=== PATIENT | male | born 1945 | race Caucasian/White ===

== ENCOUNTER 2016-08-10 01:48 | Inpatient (IN) | payer MEDICARE, OTHER ==
--- NOTE | ~2016-08-10 | DS ---
Discharge Summary [facility] [address] [place]. [address] NAME: FAITH STATON : 45 STATUS : DIS IN PAT#: [id number] AGE: 70 ADM/REG DATE : 08/10/16 MR#: [id number] REPORT SERV DATE: 08/16/16 DICTATED BY: GERSON AGUILAR DATE: 08/15/16 REPORT STATUS : Draft TRANSCRIBED BY: MODL DATE: 08/15/16 ADMISSION DATE: 08/10/2016 DISCHARGE DATE: 08/15/2016 DISCHARGE DIAGNOSES: 1. Cellulitis of the lower back. 2. Urinary tract infection. Both of these diagnoses consistent with Pseudomonas infection by culture. 3. Metastatic prostate cancer. 4. Parkinson disease. 5. Deafness. 6. Chronic pain syndrome. 7. Seizure disorder. 8. Anxiety and depression. 9. History of cerebrovascular accident with right hemiparesis. 10.History of alcohol abuse. CONSULTANTS DURING THIS HOSPITALIZATION: Dr. Sanjeev Melgar of Infectious Disease. INVASIVE PROCEDURES DONE DURING THIS HOSPITALIZATION: None. BRIEF HISTORY OF PRESENT ILLNESS: The patient is a 70-year-old male who is mostly bed-bound with a past stroke and hemiplegic, came in with mental status changes to [facility] and was transferred. For detailed history and physical exam, please see note dictated by Dr. Pete Patel on 08/10/2016. HOSPITAL COURSE: After being admitted to the hospital, this patient was given vancomycin, Rocephin, Diflucan intravenously, and he also had a slightly elevated CPK. He had cellulitis of the lower area as well as urinary tract infection which later proved to be Pseudomonas by cultures. Dr. Melgar saw the patient in consultation and recommended seven days of cefepime and patient has completed that course today. This patient's mentation has significantly improved and returned back to baseline. Physical Therapy saw the patient in consultation as well and did not recommend that he was a good candidate for rehab. We did discuss with the daughter regarding other options. This patient was found to be on multiple narcotics including methadone, oxycodone in large quantities. However, because we did not have any good history on him, these medicines were not continued during this hospitalization. This patient has actually improved in his mental state off these medications and has not displayed any signs or symptoms of withdrawal. This was discussed with the daughter, and at this time, I am recommending that these medicines be stopped. We will continue his Parkinson's medications as well. He is followed in Palliative Care by Dr. Marcel Snyder, and he will see them in followup. He remains medically stable otherwise and is being discharged in stable condition. Most of the communication with the patient during this hospitalization was done through a label designer and with family at the bedside on one occasion. DISPOSITION: Home. Discharge Summary [address] [address] NAME: FAITH STATON : 45 STATUS : DIS IN PAT#: [id number] AGE: 70 ADM/REG DATE : 08/10/16 MR#: [id number] REPORT SERV DATE: 08/16/16 DICTATED BY: GERSON AGUILAR DATE: 08/15/16 REPORT STATUS : Draft TRANSCRIBED BY: CLEMENTINA DATE: 08/15/16 ACTIVITY: As per family. DIET: As tolerated. MEDICATIONS: Baclofen 10 mg twice daily, BuSpar 7.5 mg twice daily, Sinemet CR 25/100 one tablet daily, Lasix 20 mg once daily, Zyrtec 10 mg once daily p.r.n., potassium 13.3 mEq p.o. daily, topical pain cream in the home setting, Zofran 4 mg three times daily p.r.n. for nausea, melatonin one tablet daily p.r.n. for sleep, and Artificial Tears. DISCHARGE FOLLOWUP: With Dr. Marcel Snyder in two to three weeks after discharge. More than 30 minutes spent planning this patient's discharge, reconciling medications, and discussing issues with the bilingual patient support caseworker as well as with the family at the bedside and documenting this discharge. MADY/CLEMENTINA Gerson Aguilar M.D. / [id number] CC: Frank Lunsford
--- NOTE | ~2016-08-10 | CN ---
Consultation Report [facility] [address] [place]. [address] NAME: FAITH STATON : 45 STATUS : ADM IN PAT#: [id number] AGE: 70 ADM/REG DATE : 08/10/16 MR#: [id number] REPORT SERV DATE: 08/10/16 DICTATED BY: LUIS MIGUEL BESS DATE: 08/10/16 REPORT STATUS : Draft TRANSCRIBED BY: MODKerwin DATE: 08/10/16 INFECTIOUS DISEASE CONSULT DATE OF CONSULTATION: REASON FOR REFERRAL: Evaluation and treatment of possible genitourinary tract infection, also severe rash on the back. HISTORY OF PRESENT ILLNESS: The patient is a 70-year-old male. He has a history of prostate cancer. He had a past stroke, and hemiplegic, bed-bound, and has a chronic Rosa. He was at home and developed acute mental status changes, so was taken to [facility] yesterday, with findings there of a normal temperature and normal white blood cell count. He had a rash that developed some time in the previous one to two weeks, and had been treated with baking soda, which apparently made it more inflamed and worse, extended to his entire back, perineal area, and on his scrotum, but no where else. He was given doses of vancomycin, Rocephin, and Diflucan there, transferred here for further care. His urinalysis there did show greater than 182 white blood cells, only moderate leukocyte esterase. The cultures have not been received in lab yet. He also had blood cultures sent. Chest x-ray showed no infiltrate. A CT scan of the brain without contrast was unremarkable. He seems calmer here today. He is deaf, and so unable to communicate with him, there was not a bleaching supervisor present, but he seems to understand some of our communication with him as far as being able to read the name on my lab coat, and understands some simple words by lip reading, so it appeared the mental status is better. PAST MEDICAL HISTORY: Otherwise unremarkable. MEDICATIONS: As mentioned above. ALLERGIES: NO KNOWN ANTIMICROBIAL ALLERGIES. SOCIAL HISTORY: He is disabled, apparently cared for at home. Prior to this he did not have any further history available. FAMILY HISTORY: None. PHYSICAL EXAMINATION: GENERAL: He is nontoxic appearing, awake, maintains eye contact, and said seems to understand some communication. VITAL SIGNS: His temperature here has been normal at 97.6, at present pulse 73, respirations 16, blood pressure 120/57. Weight 79 kg. HEENT: His sclerae are clear. LUNGS: clear anteriorly. HEART: Regular rate and rhythm. ABDOMEN: Soft and nontender. Positive bowel sounds. Consultation Report [facility] [id number] [place]. [address] NAME: FAITH STATON : 45 STATUS : ADM IN [facility]#: [id number] AGE: 70 ADM/REG DATE : 08/10/16 MR#: [id number] REPORT SERV DATE: 08/10/16 DICTATED BY: LUIS MIGUEL BESS DATE: 08/10/16 REPORT STATUS : Draft TRANSCRIBED BY: CLEMENTINA DATE: 08/10/16 BACK: On his back he has erythematous papular lesions covered the entire back down to the buttocks. There is a flat confluent erythema on his scrotum that looks like possible yeast infection. The back lesions look more like a reactive phenomenon and something that he has been lying on or something that has been applied to his back. LABORATORY DATA: White blood cell count 6.1, hematocrit 35, platelets 72, BUN and creatinine 8 and 0.59. Procalcitonin less than 0.05. IMPRESSION: Mental status changes, possibly due to a genitourinary tract infections, over the chronic Rosa, it is hard to know whether these changes that were seen are not chronic. I do not think the rash on his back represents an infection, but more likely reactive phenomenon though there may a yeast dermatitis in his groin. RECOMMENDATION: 1. Continue the broad-spectrum antibiotics for now. 2. Review the cultures at [facility]. 3. Diflucan for the yeast in his groin. 4. Follow the patient with you. I appreciate very much your consulting on this patient. JOSE GUADALUPE Luis Miguel Bess M.D. / [id number] CC: Jeffery Larson M.D.
--- NOTE | ~2016-08-10 | HP ---
History And Physical [facility] [id number] [place]. [address] NAME: FAITH GRANT : 45 STATUS : ADM IN [facility]#: [id number] AGE: 70 ADM/REG DATE : 08/10/16 MR#: [id number] REPORT SERV DATE: 08/10/16 DICTATED BY: PETE CARR DATE: 08/10/16 REPORT STATUS : Draft TRANSCRIBED BY: MODL DATE: 08/10/16 DATE OF ADMISSION: 08/10/2016 This is a patient I had accepted from [facility] after speaking with Dr. Mayo in the emergency department there. Briefly, this is a 70-year-old male with a history of prostate cancer, who had presented to their ER with altered mental status when he woke up in the morning. He also had a rash on his buttocks half way up his back. There are also multiple ulcerations of the skin, stage II. Apparently, home health which was visiting him and were following the rash had put baking soda on it and got the whole place inflamed about two days ago. This resulted in cellulitis. His buttocks are spared, but his scrotum is involved as well. In emergency room, initial workup revealed he had a urinary tract infection with purulent material in his Rosa catheter. The urinalysis revealed presence of a urinary tract infection and also showed yeast. He also had a tumor on his kidney, the details of which are not available. According to Dr. Mayo, blood cultures and urine cultures were taken, the patient was given vancomycin, Rocephin, and Diflucan intravenously. He also showed rhabdomyolysis. He had a CPK of 538 as well. His vitals prior to his transfer showed a heart rate of 95, blood pressure was 129/62. Apparently, he had not complained of any pain. 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 We unfortunately could not arrange an regulatory compliance coordinator who was working, and I was limited in my examination or history taking of this person. No review of systems nothing could be accomplished. However, I was able to examine his back and the rash and do a physical exam. PHYSICAL EXAMINATION: HEENT: His head appeared to be atraumatic and normocephalic. His pupils were equal and reacting to light and accommodating. External ocular muscles were intact. Membranes appeared to be moist and pink. Sclerae were nonicteric. SKIN: On his back, there was extensive rash and sloughing of erythematous skin, possibly due to the application of baking soda. It extends from just above his buttocks all the way to his neck and all over the back. His scrotum appeared to be involved as well. LUNGS: Clear to auscultation with no wheezes, rubs, or crackles. HEART: Heart sounds were regular with no murmurs, rubs, or gallops appreciated. ABDOMEN: Soft and nontender. Bowel sounds were present. EXTREMITIES: Showed no cyanosis, clubbing, or edema. NEUROLOGIC: Appeared to be grossly intact. He had contractures in his right upper extremity and paralysis in his right lower extremity from a prior CVA. Gait was not examined. LABORATORY DATA: His laboratory data and other information that accompanied the patient from [facility] were all reviewed as well. History And Physical [address] [address] NAME: FAITH GRANT : 45 STATUS : ADM IN [facility]#: [id number] AGE: 70 ADM/REG DATE : 08/10/16 MR#: [id number] REPORT SERV DATE: 08/10/16 DICTATED BY: PETE CARR DATE: 08/10/16 REPORT STATUS : Draft TRANSCRIBED BY: CLEMENTINA DATE: 08/10/16 IMPRESSION: 1. Cellulitis of the back. 2. Urinary tract infection. 3. Altered mental status. 4. Rhabdomyolysis. 5. History of prostate cancer. 6. Renal mass. 7. History of cerebrovascular accident with residual paralysis. PLAN: We will admit Mr. Grant to the Hospitalist Service on the med/surg tele floor for close monitoring. After obtaining cultures, we will continue his antibiotics; he was already started on Rocephin, vancomycin, and Diflucan. Apparently, his Rosa catheter was changed at [facility]. We will continue to monitor. We will get Wound Care to evaluate and treat his rash and ulcerations in the back. We will also get Social Work to evaluate his home situation. In the daytime, we may have the opportunity to have a live regulatory compliance coordinator and get more information from Mr. Grant. He is nonambulatory and communicates via sign language only. Meanwhile, we will start him on IV fluids for volume replacement, check chemistry, CBC, and other labs here, and proceed accordingly. We will also establish pain control as needed and place him on unfractionated heparin for DVT prophylaxis while he is here. The Hospitalist Service will be following him during his stay here. TIANA Pete Carr M.D. / [id number] CC: Jeffery Larson M.D.
[~2016-08-10 01:48] MED LIST: AMB10 PO; ARICEPT10 PO; ASAB PO; BACDS PO; DIOVAN HC1 PO; DRAMAMINE25 MG PO; FERRETTS325 MG PO; FISH-EPA1000 MG PO; GARLIC PO; KLOR-CON M2020 MEQ PO; LORT7 PO; LORTAB 5 PO; MAGOX4 PO; MCZ25 PO; MIRAPEX250 PO; PR25 PO; PROAM25 PO; SIN25 PO; ULTRAM50 PO; VICODINTAB PO; VITAMIN B PO; VITAMIN D1000 UNI1 PO; X5 PO; XANAX1 MG PO; [UNRECOGNIZED DRUG - OTHER] PO
[2016-08-10 03:31] LABS: ASCORBIC ACID (UR NOT ORDER) NEG (NEG); BILIRUBIN, URINE NEGATIVE (NEG); KETONE, URINE NEGATIVE (NEG); LEUKOCYTE ESTERASE(NOT OR SMALL (NEG); WBC (NOT ORDERED) (RFLEX) 52 (0-5)
[2016-08-10 07:14] LABS: BASOPHILS 0.3 %; BASOPHILS ABSOLUTE 0.02 10/3/uL (0.0-0.16); EOSINOPHILS 3.1 %; EOSINOPHILS ABSOLUTE 0.19 10/3/uL (0.0-0.53); HEMOGLOBIN 11.4 g/dL (13.6-17.8); IMMATURE GRANULOCYTES 0.5 %; IMMATURE GRANULOCYTES ABSOLUTE 0.03 10/3/uL (0.0-0.11); LYMPHOCYTES 26.9 %; LYMPHOCYTES ABSOLUTE 1.63 10/3/uL (0.67-4.30); MEAN CORPUSCULAR HEMOGLOB 29.6 pg (26.0-34.0); MEAN PLATELET VOLUME 9.8 fL (9.2-13.0); MONOCYTES 13.6 %; MONOCYTES ABSOLUTE 0.82 10/3/uL (0.21-1.20); NEUTROPHILS 55.6 %; NEUTROPHILS ABSOLUTE 3.36 10/3/uL (2.02-8.40); RBC DISTRIBUTION WIDTH 15.3 % (12.0-16.0); RED CELL COUNT 3.85 10/6/uL (4.7-6.1); WHITE BLOOD CELLS 6.1 10/3/uL (4.5-10.5)
[2016-08-10 07:17] LABS: MANUAL DIFF NO %; MEAN CORPUS HGB CONC 32.6 g/dL (32.0-36.0); MEAN CORPUSCULAR VOLUME 90.9 fL (80-100); PLATELET COUNT 72 10/3/uL (150-400)
[2016-08-10 07:29] LABS: A/G RATIO 0.8 (0.7-1.9); ALBUMIN 2.4 G/DL (3.5-5.0); ALKALINE PHOSPHATASE 102 U/L (45-117); BUN (BLOOD UREA NITROGEN) 8 MG/DL (6-23); CALCIUM, SERUM 8.1 MG/DL (8.5-10.4); CHLORIDE, SERUM 107 MMOL/L (96-112); CO2 (CARBON DIOXIDE) 27 MMOL/L (24-34); CREATININE 0.59 MG/DL (0.70-1.30); GFR AFRICAN AMERICAN 119 ML/MIN (>=60); GFR NON AFRICAN AMERICAN 103 ML/MIN (>=60); GLUCOSE, SERUM 90 MG/DL (60-99); PHOSPHORUS, SERUM 2.3 MG/DL (2.5-4.5); POTASSIUM, SERUM 3.6 MMOL/L (3.5-5.3); SGPT(ALT) 14 U/L (5-65); SODIUM, SERUM 140 MMOL/L (135-148); TOTAL BILIRUBIN 0.8 MG/DL (0-1.2); TOTAL PROTEIN 5.4 G/DL (6.0-8.5)
[2016-08-10 07:30] LABS: SGOT(AST) 31 U/L (5-40)
[2016-08-10 08:08] LABS: PROCALCITONIN <0.05 ng/mL (<0.5)
[2016-08-11 04:45] LABS: BASOPHILS 0.6 %; BASOPHILS ABSOLUTE 0.03 10/3/uL (0.0-0.16); EOSINOPHILS 2.9 %; EOSINOPHILS ABSOLUTE 0.15 10/3/uL (0.0-0.53); HEMATOCRIT 35.2 % (40.0-51.0); HEMOGLOBIN 11.2 g/dL (13.6-17.8); IMMATURE GRANULOCYTES 0.2 %; IMMATURE GRANULOCYTES ABSOLUTE 0.01 10/3/uL (0.0-0.11); LYMPHOCYTES 29.1 %; LYMPHOCYTES ABSOLUTE 1.52 10/3/uL (0.67-4.30); MEAN CORPUS HGB CONC 31.8 g/dL (32.0-36.0); MEAN CORPUSCULAR HEMOGLOB 29.2 pg (26.0-34.0); MEAN CORPUSCULAR VOLUME 91.7 fL (80-100); MEAN PLATELET VOLUME 9.2 fL (9.2-13.0); MONOCYTES 12.5 %; MONOCYTES ABSOLUTE 0.65 10/3/uL (0.21-1.20); NEUTROPHILS 54.7 %; NEUTROPHILS ABSOLUTE 2.86 10/3/uL (2.02-8.40); RBC DISTRIBUTION WIDTH 14.7 % (12.0-16.0); RED CELL COUNT 3.84 10/6/uL (4.7-6.1); WHITE BLOOD CELLS 5.2 10/3/uL (4.5-10.5)
[2016-08-11 04:52] LABS: MANUAL DIFF NO %; PLATELET COUNT 181 10/3/uL (150-400)
[2016-08-12 06:29] LABS: BUN (BLOOD UREA NITROGEN) 5 MG/DL (6-23); CALCIUM, SERUM 8.2 MG/DL (8.5-10.4); CHLORIDE, SERUM 106 MMOL/L (96-112); CO2 (CARBON DIOXIDE) 24 MMOL/L (24-34); CREATININE 0.51 MG/DL (0.70-1.30); GFR AFRICAN AMERICAN 126 ML/MIN (>=60); GFR NON AFRICAN AMERICAN 109 ML/MIN (>=60); GLUCOSE, SERUM 92 MG/DL (60-99); POTASSIUM, SERUM 3.2 MMOL/L (3.5-5.3); SODIUM, SERUM 141 MMOL/L (135-148)
[2016-08-12] MEDS ORDERED: LASIX (08:10)
[2016-08-12] MEDS ORDERED: *UNABLE3 (08:10)
[2016-08-12] MEDS ORDERED: POTASSIUM (08:11)
[2016-08-12] MEDS ORDERED: ROXICODONE (08:11)
[2016-08-12] MEDS ORDERED: METHADONE (08:12)
[2016-08-12] MEDS ORDERED: [UNRECOGNIZED DRUG - CODE] (08:13)
[2016-08-12] MEDS ORDERED: LEXAPRO (08:13)
[2016-08-13 04:26] LABS: BASOPHILS 0.6 %; BASOPHILS ABSOLUTE 0.03 10/3/uL (0.0-0.16); EOSINOPHILS ABSOLUTE 0.11 10/3/uL (0.0-0.53); HEMATOCRIT 35.2 % (40.0-51.0); HEMOGLOBIN 11.6 g/dL (13.6-17.8); IMMATURE GRANULOCYTES 0.6 %; IMMATURE GRANULOCYTES ABSOLUTE 0.03 10/3/uL (0.0-0.11); LYMPHOCYTES 24.2 %; LYMPHOCYTES ABSOLUTE 1.31 10/3/uL (0.67-4.30); MEAN CORPUSCULAR HEMOGLOB 29.5 pg (26.0-34.0); MEAN CORPUSCULAR VOLUME 89.6 fL (80-100); MONOCYTES 14.8 %; NEUTROPHILS 57.8 %; NEUTROPHILS ABSOLUTE 3.14 10/3/uL (2.02-8.40); PLATELET COUNT 219 10/3/uL (150-400); RBC DISTRIBUTION WIDTH 14.4 % (12.0-16.0); RED CELL COUNT 3.93 10/6/uL (4.7-6.1); WHITE BLOOD CELLS 5.4 10/3/uL (4.5-10.5)
[2016-08-13 04:27] LABS: MANUAL DIFF NO %
[2016-08-13 04:48] LABS: ALBUMIN 2.7 G/DL (3.5-5.0); BUN (BLOOD UREA NITROGEN) 5 MG/DL (6-23); CALCIUM, SERUM 8.6 MG/DL (8.5-10.4); CHLORIDE, SERUM 108 MMOL/L (96-112); CO2 (CARBON DIOXIDE) 25 MMOL/L (24-34); CREATININE 0.49 MG/DL (0.70-1.30); GFR AFRICAN AMERICAN 128 ML/MIN (>=60); GFR NON AFRICAN AMERICAN 111 ML/MIN (>=60); GLUCOSE, SERUM 103 MG/DL (60-99); PHOSPHORUS, SERUM 2.2 MG/DL (2.5-4.5); SODIUM, SERUM 141 MMOL/L (135-148)
[2016-08-13 04:51] LABS: POTASSIUM, SERUM 3.1 MMOL/L (3.5-5.3)
[2016-08-13] MEDS ORDERED: METHADONE10 MG/5 ML PO (16:20)
[2016-08-13] MEDS ORDERED: TOPICAL PAIN CREAM TOP (16:22)
[2016-08-13] MEDS ORDERED: [UNRECOGNIZED DRUG - OTHER] PO (16:22)
[2016-08-13] MEDS ORDERED: KCL40UDL PO (16:23)
[2016-08-13] MEDS ORDERED: OXYCOD PO (16:24)
[2016-08-13] MEDS ORDERED: REST15 PO (16:24)
[2016-08-13] MEDS ORDERED: BUSPIRONE7.5 MG PO (16:24)
[2016-08-13] MEDS ORDERED: LIOR10 PO (16:25)
[2016-08-13] MEDS ORDERED: L20 PO (16:25)
[2016-08-13] MEDS ORDERED: ZOFRAN4 PO (16:26)
[2016-08-13] MEDS ORDERED: ZYRTEC ALLGY10 MG PO (16:27)
[2016-08-13] MEDS ORDERED: SINCR25100 PO (16:27)
[2016-08-13] MEDS ORDERED: MELATONIN PO (16:28)
[2016-08-13] MEDS ORDERED: AKWA TEARS15 ML OPH (16:29)
[2016-08-14 06:33] LABS: BASOPHILS 0.6 %; BASOPHILS ABSOLUTE 0.03 10/3/uL (0.0-0.16); EOSINOPHILS 3.4 %; EOSINOPHILS ABSOLUTE 0.17 10/3/uL (0.0-0.53); HEMOGLOBIN 11.2 g/dL (13.6-17.8); IMMATURE GRANULOCYTES 0.8 %; IMMATURE GRANULOCYTES ABSOLUTE 0.04 10/3/uL (0.0-0.11); LYMPHOCYTES 30.2 %; LYMPHOCYTES ABSOLUTE 1.53 10/3/uL (0.67-4.30); MEAN CORPUS HGB CONC 32.9 g/dL (32.0-36.0); MEAN CORPUSCULAR HEMOGLOB 29.6 pg (26.0-34.0); MEAN CORPUSCULAR VOLUME 89.7 fL (80-100); MEAN PLATELET VOLUME 9.4 fL (9.2-13.0); MONOCYTES 12.8 %; MONOCYTES ABSOLUTE 0.65 10/3/uL (0.21-1.20); NEUTROPHILS 52.2 %; NEUTROPHILS ABSOLUTE 2.64 10/3/uL (2.02-8.40); PLATELET COUNT 225 10/3/uL (150-400); RBC DISTRIBUTION WIDTH 14.8 % (12.0-16.0); RED CELL COUNT 3.79 10/6/uL (4.7-6.1); WHITE BLOOD CELLS 5.1 10/3/uL (4.5-10.5)
[2016-08-14 06:34] LABS: MANUAL DIFF NO %
[2016-08-14 06:46] LABS: ALBUMIN 2.6 G/DL (3.5-5.0); BUN (BLOOD UREA NITROGEN) 3 MG/DL (6-23); CALCIUM, SERUM 8.5 MG/DL (8.5-10.4); CHLORIDE, SERUM 107 MMOL/L (96-112); CO2 (CARBON DIOXIDE) 23 MMOL/L (24-34); CREATININE 0.48 MG/DL (0.70-1.30); GFR AFRICAN AMERICAN 129 ML/MIN (>=60); GFR NON AFRICAN AMERICAN 112 ML/MIN (>=60); GLUCOSE, SERUM 98 MG/DL (60-99); PHOSPHORUS, SERUM 2.3 MG/DL (2.5-4.5); POTASSIUM, SERUM 2.5 MMOL/L (3.5-5.3); SODIUM, SERUM 144 MMOL/L (135-148)
[2016-08-15 07:16] LABS: HEMATOCRIT 36.3 % (40.0-51.0); HEMOGLOBIN 11.7 g/dL (13.6-17.8); MANUAL DIFF YES %; MEAN CORPUS HGB CONC 32.2 g/dL (32.0-36.0); MEAN CORPUSCULAR HEMOGLOB 29.5 pg (26.0-34.0); MEAN CORPUSCULAR VOLUME 91.4 fL (80-100); MEAN PLATELET VOLUME 10.9 fL (9.2-13.0); PLATELET COUNT 201 10/3/uL (150-400); RED CELL COUNT 3.97 10/6/uL (4.7-6.1); WHITE BLOOD CELLS 5.1 10/3/uL (4.5-10.5)
[2016-08-15 07:31] LABS: ALBUMIN 2.5 G/DL (3.5-5.0); BUN (BLOOD UREA NITROGEN) 3 MG/DL (6-23); CALCIUM, SERUM 8.9 MG/DL (8.5-10.4); CHLORIDE, SERUM 112 MMOL/L (96-112); CO2 (CARBON DIOXIDE) 22 MMOL/L (24-34); CREATININE 0.51 MG/DL (0.70-1.30); GFR AFRICAN AMERICAN 126 ML/MIN (>=60); GFR NON AFRICAN AMERICAN 109 ML/MIN (>=60); GLUCOSE, SERUM 79 MG/DL (60-99); PHOSPHORUS, SERUM 2.2 MG/DL (2.5-4.5); POTASSIUM, SERUM 3.5 MMOL/L (3.5-5.3); SODIUM, SERUM 143 MMOL/L (135-148)
[2016-08-15 08:00] LABS: EOSINOPHILS 7 %; EOSINOPHILS ABSOLUTE (CALC) 0.36 10/3/uL (0.0-0.53); LYMPHOCYTES 34 %; LYMPHOCYTES ABSOLUTE (CALC) 1.73 10/3/uL (0.67-4.30); MONOCYTES 9 %; MONOCYTES ABSOLUTE (CALC) 0.46 10/3/uL (0.21-1.20); NEUTROPHILS ABSOLUTE (CALC) 2.55 10/3/uL (2.02-8.40); PLATELET ESTIMATE ADQ (ADEQUATE); RBC MORPHOLOGY NORM (NORMAL); SEGMENTED NEUTROPHIL (0) 50 %; TOTAL NUCLEATED CELLS 100
== END 2016-08-15 13:21 | disposition home health service (06) | DRG 698 ==
LOC: 4SO 01:48
PROVIDERS: Internal Medicine; Internal Medicine Pulmonary Disease
DX: T83.511A Infection and inflammatory reaction due to indwelling urethral catheter, initial encounter (principal); G93.41 Metabolic encephalopathy; L89.102 Pressure ulcer of unspecified part of back, stage 2; L03.312 Cellulitis of back [any part except buttock and flank]; M62.82 Rhabdomyolysis; G20 Parkinson's disease; I69.351 Hemiplegia and hemiparesis following cerebral infarction affecting right dominant side; B37.49 Other urogenital candidiasis; H91.3 Deaf nonspeaking, not elsewhere classified; Y84.6 Urinary catheterization as the cause of abnormal reaction of the patient, or of later complication, without mention of misadventure at the time of the procedure; N49.2 Inflammatory disorders of scrotum; Y92.009 Unspecified place in unspecified non-institutional (private) residence as the place of occurrence of the external cause; R41.82 Altered mental status, unspecified; Z85.46 Personal history of malignant neoplasm of prostate; N28.89 Other specified disorders of kidney and ureter; Z74.01 Bed confinement status; B96.5 Pseudomonas (aeruginosa) (mallei) (pseudomallei) as the cause of diseases classified elsewhere; G89.4 Chronic pain syndrome; G40.909 Epilepsy, unspecified, not intractable, without status epilepticus; F41.9 Anxiety disorder, unspecified; F32.9 Major depressive disorder, single episode, unspecified; F10.21 Alcohol dependence, in remission; Z79.891 Long term (current) use of opiate analgesic
CPT/HCPCS: 74176; 80048; 80053; 80069; 81001; 82550; 82565; 83605; 83735; 84100; 84132; 84145; 85025; 87040; 87086; 92610-GN; 97162-GP; A9270-GY; G8978-CN-GP; G8979-CN-GP; G8980-CN-GP; G8996-CJ-GN; G8997-CJ-GN; G8998-CJ-GN; J0692; J1450; J3370

== ENCOUNTER 2016-08-20 02:53 | Emergency (ER) | payer MEDICARE, OTHER ==
[~2016-08-20 02:53] MED LIST changes: +*UNABLE3; +AKWA TEARS15 ML OPH; +BUSPIRONE7.5 MG PO; +KCL40UDL PO; +L20 PO; +LASIX; +LEXAPRO; +LIOR10 PO; +MELATONIN PO; +METHADONE; +METHADONE10 MG/5 ML PO; +OXYCOD PO; +POTASSIUM; +REST15 PO; +ROXICODONE; +SINCR25100 PO; +TOPICAL PAIN CREAM TOP; +ZOFRAN4 PO; +ZYRTEC ALLGY10 MG PO; +[UNRECOGNIZED DRUG - CODE]; +[UNRECOGNIZED DRUG - OTHER] PO
[2016-08-20 03:48] LABS: ASCORBIC ACID (UR NOT ORDER) NEG (NEG); BILIRUBIN, URINE NEGATIVE (NEG); ER URINALYSIS TAT 0 Hrs 00 Mins; KETONE, URINE NEGATIVE (NEG); LEUKOCYTE ESTERASE(NOT OR NEG (NEG); NITRITE (URINE) NEG (NEG); WBC (NOT ORDERED) (RFLEX) 1 (0-5)
== END 2016-08-20 08:49 | disposition home or self-care (01) ==
LOC: ER 02:53
PROVIDERS: Specialist
PROC: 0T2BX0Z Change Drainage Device in Bladder, External Approach (ICD-10-PCS; principal; 2016-08-20)
DX: R33.9 Retention of urine, unspecified (principal); F32.9 Major depressive disorder, single episode, unspecified; F41.9 Anxiety disorder, unspecified; Z85.46 Personal history of malignant neoplasm of prostate; Z86.73 Personal history of transient ischemic attack (TIA), and cerebral infarction without residual deficits; Z88.8 Allergy status to other drugs, medicaments and biological substances; Z79.899 Other long term (current) drug therapy
CPT/HCPCS: 81001; 93005; 99284